=== PATIENT | female | born 1990 | race African-American/Black ===

== ENCOUNTER → 2018-04-24 | Outpatient (CLI) | payer OTHER ==
[2018-04-24 15:47] LABS: ALBUMIN 3.9 g/dL (3.4-5.0); ALBUMIN/GLOBULIN RATIO 1.1 (1.0-1.7); CALCIUM 9.1 mg/dL (8.5-10.1); CREATININE 0.8 mg/dL (0.6-1.0); GFR 104.9; TOTAL BILIRUBIN 0.1 mg/dL (0.2-1.0); TOTAL PROTEIN 7.5 g/dL (6.4-8.2)
[2018-04-24 15:49] LABS: BASO # 0.1 x10^3/uL (0.0-0.2); BASO % 1 % (0-3); EOS # 0.3 x10^3/uL (0.0-0.7); EOS % 5 % (0-3); HEMOGLOBIN 12.3 g/dL (12.0-15.5); LYMPH # 2.2 x10^3/uL (1.0-4.8); LYMPH % 38 % (24-48); MEAN CORPUSCULAR HEMOGLOBIN 31 pg (25-35); MEAN CORPUSCULAR HGB CONC 33 g/dL (31-37); MEAN CORPUSCULAR VOLUME 93 fL (79-100); MONO # 0.3 x10^3/uL (0.0-1.1); MONO % 5 % (0-9); NEUT # 2.9 x10^3uL (1.8-7.7); NEUT % 50 % (31-73); PLATELET COUNT 381 x10^3/uL (140-400); RED BLOOD COUNT 3.99 x10^6/uL (3.50-5.40); RED CELL DISTRIBUTION WIDTH 13.9 % (11.5-14.5); WHITE BLOOD COUNT 5.7 x10^3/uL (4.0-11.0)
== END | disposition home or self-care (01) ==
LOC: LABRC 15:09
PROVIDERS: ATTEND Specialist
DX: E03.9 Hypothyroidism, unspecified (principal)
CPT/HCPCS: 36415; 80053; 85025

== ENCOUNTER → 2018-05-10 | Outpatient (CLI) | payer OTHER ==
[2018-05-10 12:00] LABS: ALBUMIN 3.8 g/dL (3.4-5.0); ALBUMIN/GLOBULIN RATIO 1.2 (1.0-1.7); CALCIUM 8.7 mg/dL (8.5-10.1); CREATININE 0.9 mg/dL (0.6-1.0); GFR 91.6; POTASSIUM 3.9 mmol/L (3.5-5.1); TOTAL BILIRUBIN 0.2 mg/dL (0.2-1.0); TOTAL PROTEIN 6.9 g/dL (6.4-8.2)
[2018-05-10 20:07] LABS: THYROXINE 7.4 ug/dL (4.5-12.0)
== END | disposition home or self-care (01) ==
LOC: LAB 10:26
PROVIDERS: ATTEND Specialist
DX: E03.9 Hypothyroidism, unspecified (principal)
CPT/HCPCS: 36415; 80053; 84436; 84443; 84480

== ENCOUNTER 2018-09-23 22:04 | Emergency (ER) | payer OTHER ==
[~2018-09-23] VITALS: Ht 167.6 cm; Wt 63.1 kg
[2018-09-23 22:10] VITALS: BP 124/81
[2018-09-23] MEDS ORDERED: LIDO5JEL3 MM (22:40)
[2018-09-23] MEDS ORDERED: KETO10TA PO (22:41)
--- NOTE | 2018-09-23 22:42 | PHYS DOC ---
Adult General [facility] HPI Patient is a 28-year-old female who presents with complaint of left lower dental pain. Patient was seen by dentist earlier this week for the same complaint. Patient indicates that she was told that she has an impacted wisdom tooth. She has been prescribed hydrocodone as well as amoxicillin. Patient states that pain is not adequately managed with these medications. She denies any fever. Patient also wanting to make sure that she doesn't have an infection. Review of Systems Review of Systems Constitutional: Denies fever or chills [] HENT: Complains of dental pain [] Respiratory: Denies cough or shortness of breath [] Cardiovascular: No additional information not addressed in HPI [] Musculoskeletal: Denies back pain or joint pain [] Physical Exam Physical Exam Constitutional: Well developed, well nourished, no acute distress, non-toxic appearance. [] HENT: Dentition is fairly good with minimal caries. There does appear to be an impacted wisdom tooth noted in the left mandibular region. Palpation over this tooth is quite tender. [] Eyes: PERRLA, EOMI, conjunctiva normal, no discharge. [] Neck: Normal range of motion, no tenderness, supple, no stridor. No lymphadenopathy. [] Cardiovascular:Heart rate regular rhythm [] Lungs & Thorax: Bilateral breath sounds clear to auscultation [] EKG EKG [] Radiology/Procedures Radiology/Procedures [] Course & Med Decision Making Course & Med Decision Making Pertinent Labs and Imaging studies reviewed. (See chart for details) [] Dragon Disclaimer Dragon Disclaimer This electronic medical record was generated, in whole or in part, using a voice recognition dictation system. Departure Departure: Impression: Primary Impression: Impacted third molar tooth Disposition: 01 HOME, SELF-CARE Condition: STABLE Referrals: PCP,NO (PCP) Patient Instructions: Impacted Molar Scripts Ketorolac Tromethamine (KETOROLAC TROMETHAMINE) 10 Mg Tablet 1 TAB PO PRN Q6HRS PRN for PAIN, #20 TAB Prov: FABIÁN SALAZAR Jr. DO 09/23/18 Lidocaine Hcl (LIDOCAINE HCL) 5 Ml Jel..ml. 1 ML MM Q2HR PRN for PAIN, #100 ML Prov: FABIÁN SALAZAR Jr. DO 09/23/18 FABIÁN SALAZAR Jr. DO Sep 23, 2018 22:42
== END 2018-09-23 22:55 | disposition home or self-care (01) ==
LOC: ER 22:04
DX: K01.1 Impacted teeth (principal)
CPT/HCPCS: 99283

== ENCOUNTER 2018-11-23 05:20 | Emergency (ER) | payer OTHER ==
[~2018-11-23] VITALS: Ht 165.1 cm; Wt 68.0 kg
[~2018-11-23 05:20] MED LIST: KETO10TA PO; LIDO5JEL3 MM
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
[2018-11-23] MEDS ORDERED: KETOROLAC 15 MG/ML VIAL. IM ONE (06:30)
[2018-11-23] MEDS ORDERED: CONTRAST GIVEN MC PRN (06:30)
[2018-11-23] MEDS ORDERED: IOHEXOL 300 MG/ML 75 ML VIAL. IV ONE (06:30)
[2018-11-23 06:35] LABS: BASO % 1 % (0-3); EOS # 0.1 x10^3/uL (0.0-0.7); EOS % 2 % (0-3); HEMOGLOBIN 11.7 g/dL (12.0-15.5); LYMPH # 2.2 x10^3/uL (1.0-4.8); LYMPH % 32 % (24-48); MEAN CORPUSCULAR HEMOGLOBIN 31 pg (25-35); MEAN CORPUSCULAR HGB CONC 33 g/dL (31-37); MEAN CORPUSCULAR VOLUME 92 fL (79-100); MONO # 0.5 x10^3/uL (0.0-1.1); MONO % 7 % (0-9); NEUT # 4.1 x10^3uL (1.8-7.7); NEUT % 59 % (31-73); PLATELET COUNT 255 x10^3/uL (140-400); RED BLOOD COUNT 3.82 x10^6/uL (3.50-5.40); RED CELL DISTRIBUTION WIDTH 12.9 % (11.5-14.5)
[2018-11-23 06:52] LABS: AMORPHOUS SEDIMENT,UR PRESENT /HPF; BACTERIA,URINE FEW /HPF (0-FEW); BILIRUBIN,URINE NEG (NEG); CLARITY,URINE CLEAR; COLOR,URINE YELLOW; GLUCOSE,URINE NEG (NEG); NITRITE,URINE NEG (NEG); RBC,URINE 0 /HPF (0-2); SQUAMOUS EPITHELIAL CELL,UR MOD /LPF; UROBILINOGEN,URINE 0.2 mg/dL (0.2 mg/dL)
[2018-11-23 06:57] LABS: ALBUMIN 3.2 g/dL (3.4-5.0); ALBUMIN/GLOBULIN RATIO 1.1 (1.0-1.7); CALCIUM 8.1 mg/dL (8.5-10.1); CREATININE 0.9 mg/dL (0.6-1.0); GFR 91.6; POTASSIUM 3.1 mmol/L (3.5-5.1); TOTAL BILIRUBIN 0.2 mg/dL (0.2-1.0); TOTAL PROTEIN 6.1 g/dL (6.4-8.2)
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
[2018-11-23] MEDS ORDERED: MELO7.5T29 PO (08:09)
[2018-11-23 08:12] VITALS: BP 119/75
== END 2018-11-23 08:12 | disposition home or self-care (01) ==
LOC: EEVIPCON 05:20 → ER 05:20
DX: S09.90XA Unspecified injury of head, initial encounter (principal); S20.212A Contusion of left front wall of thorax, initial encounter; S40.022A Contusion of left upper arm, initial encounter; R09.89 Other specified symptoms and signs involving the circulatory and respiratory systems; E04.1 Nontoxic single thyroid nodule; F17.210 Nicotine dependence, cigarettes, uncomplicated; Y08.89XA Assault by other specified means, initial encounter; Y93.89 Activity, other specified; Y92.89 Other specified places as the place of occurrence of the external cause; Y99.8 Other external cause status
CPT/HCPCS: 36415; 70450; 70491; 71046; 73060; 80053; 81001; 81025; 85025; 85610; 96372; 99284; J1885; Q9967

== ENCOUNTER 2019-01-10 23:30 | Emergency (ER) | payer OTHER ==
[~2019-01-10] VITALS: Ht 172.7 cm; Wt 72.3 kg
[2019-01-10 23:30] VITALS: BP 105/66
[~2019-01-10 23:30] MED LIST changes: +MELO7.5T29 PO
[2019-01-11] MEDS ORDERED: AMOX1TAB61 PO (00:13)
--- NOTE | 2019-01-11 00:13 | PHYS DOC ---
Past History Past Medical History: No Pertinent History, Other Past Surgical History: No Surgical History, Other Smoking: Cigarettes, Less than 1pk/day Alcohol Use: Rarely Drug Use: None Adult General Chief Complaint Chief Complaint: FACE PROBLEM HPI HPI 8-year-old female presents with swollen left lower lip. The patient was chewing gum yesterday evening when she actually bit her lip very hard. Over the last 1 day she's had increased swelling. She was actually sent home from work because she was "scaring the customers". The patient is concerned that it might be infected. It still very painful. He has not any bleeding. She has never had anything like this before. He denies that this was caused by anyone else. She has no known allergies. She denies any new medications or exposures. Review of Systems Review of Systems Constitutional: Denies fever or chills [] Eyes: Denies change in visual acuity, redness, or eye pain [] HENT: Denies nasal congestion or sore throat. Swollen lower lip. [] Respiratory: Denies cough or shortness of breath [] Cardiovascular: No additional information not addressed in HPI [] GI: Denies abdominal pain, nausea, vomiting, bloody stools or diarrhea [] : Denies dysuria or hematuria [] Musculoskeletal: Denies back pain or joint pain [] Integument: Denies rash or skin lesions [] Neurologic: Denies headache, focal weakness or sensory changes [] Endocrine: Denies polyuria or polydipsia [] All other systems were reviewed and found to be within normal limits, except as documented in this note. Current Medications Current Medications Current Medications Medications (Trade) Dose Ordered Sig/[facility] Start Time Stop Time Status Last Admin Dose Admin Amoxicillin/ Clavulanate Potassium (Augmentin 875/ 125mg) 1 tab 1X ONCE 01/11/19 00:15 01/11/19 00:16 Methylprednisolone Sodium Succinate (SOLU-Medrol 125MG VIAL) 125 mg 1X ONCE 01/11/19 00:15 01/11/19 00:16 Allergies Allergies Allergies Coded Allergies Type Severity Reaction Last Updated Verified No Known Drug Allergies 11/23/18 No Physical Exam Physical Exam Constitutional: Well developed, well nourished, no acute distress, non-toxic appearance. [] HENT: Normocephalic, atraumatic, bilateral external ears normal, oropharynx moist. Left lower lip is swollen with a firm center consistent with inflammation from trauma. [] Eyes: PERRLA, EOMI, conjunctiva normal, no discharge. [] Neck: Normal range of motion, no tenderness, supple, no stridor. [] Cardiovascular:Heart rate regular rhythm, no murmur [] Lungs & Thorax: Bilateral breath sounds clear to auscultation [] Abdomen: Bowel sounds normal, soft, no tenderness, no masses, no pulsatile masses. [] Skin: Warm, dry, no erythema, no rash. [] Back: No tenderness, no CVA tenderness. [] Extremities: No tenderness, no cyanosis, no clubbing, ROM intact, no edema. [] Neurologic: Alert and oriented X 3, normal motor function, normal sensory function, no focal deficits noted. [] Psychologic: Affect normal, judgement normal, mood normal. [] EKG EKG [] Radiology/Procedures Radiology/Procedures [] Course & Med Decision Making Course & Med Decision Making Pertinent Labs and Imaging studies reviewed. (See chart for details) The patient apparently bit her lip quite hard. I will give her a prophylactic prescription of Augmentin in case she is developing infection. This is likely just impact trauma and swelling as a result. I will also give her a dose of Solu -Medrol to help with the swelling. For discharge at this time. [] Dragon Disclaimer Dragon Disclaimer This electronic medical record was generated, in whole or in part, using a voice recognition dictation system. Departure Departure: Disposition: 01 HOME, SELF-CARE Condition: STABLE Referrals: PCP,NO (PCP) Patient Instructions: Mouth Injury, Generic, [id number] Scripts Amoxicillin/Potassium Clav (AUGMENTIN 875-125 TABLET) 1 Each Tablet 1 TAB PO BID for lip infection, #14 TAB Prov: LUIS VEGA DO 01/11/19 LUIS VEGA DO Jan 11, 2019 00:13
[2019-01-11] MEDS ORDERED: methylPREDNISolone SOD SUCC PF 125 MG/2 ML VIAL. IM ONE (00:15)
[2019-01-11] MEDS ORDERED: AMOXICILLIN/K CLAV 875/125MG TABLET. PO ONE (00:15)
== END 2019-01-11 00:19 | disposition home or self-care (01) ==
LOC: ER 23:30
DX: K13.0 Diseases of lips (principal); F17.210 Nicotine dependence, cigarettes, uncomplicated
CPT/HCPCS: 96372; 99283; J2930